=== PATIENT | female | born 1960 | race Caucasian/White ===

== ENCOUNTER 2019-03-03 06:54 | Day surgery (SDC) | payer BC ==
[~2019-03-03 06:54] MED LIST: Lactated Ringers 1,000 ML IV SCH
[2019-03-03] MEDS ORDERED: Lidocaine 2% 100 MG/5 ML Syringe IVPUSH ONE (06:55)
[2019-03-03] MEDS ORDERED: Propofol 200 MG/20 ML SDV IV ONE (06:55)
[2019-03-03] MEDS ORDERED: Midazolam 1 MG/ML 2 ML SDV IVPUSH ONE (06:55)
[2019-03-03] MEDS ORDERED: Simethicone Drops 40 MG/0.6 ML 30 ML Bottle ONE (08:41)
--- NOTE | 2019-03-03 08:54 | PCM.HP ---
H&P History of Present Illness - General Date of Service: 03/03/19 Admit Problem/Dx: Admission Diagnosis/Problem Admission Diagnosis/Problem Esophagogastroduodenoscopy Source of Information: Patient History Limitations: Reports: No Limitations - History of Present Illness Initial Comments - Free Text/Narative: Here for EGD and colonoscopy for evaluation of GERD, abd pain and Change in bowel habits - Related Data Allergies/Adverse Reactions: Allergies Allergy/AdvReac Type Severity Reaction Status Date / Time amlodipine besylate Allergy Cannot Verified 02/14/19 09:01 [From Lotrel] Remember benazepril HCl [From Lotrel] Allergy Cannot Verified 02/14/19 09:01 Remember diphenhydramine HCl Allergy Tachycardia Verified 02/14/19 09:01 [From Benadryl] hydrochlorothiazide Allergy Other Verified 03/02/19 10:55 Penicillins Allergy Rash Verified 02/14/19 09:01 Home Medications: Home Meds Acetaminophen 650 mg PO Q4H PRN 11/04/13 [History] Aspirin [Adult Low Dose Aspirin EC] 81 mg PO DAILY 11/04/13 [History] Cyclobenzaprine [Flexeril] 10 mg PO BEDTIME 11/04/13 [History] Hydrochlorothiazide 50 mg PO DAILY 11/04/13 [History] Hydrocodone/Acetaminophen [Hydrocodon-Acetaminophn 10-325] 1 each PO Q6HR [History] Metoprolol Tartrate 100 mg PO BID 11/04/13 [History] Olmesartan [Benicar] 40 mg PO DAILY 11/04/13 [History] sitaGLIPtin Phos/Metformin HCl [Janumet Xr 50-1,000 mg Tablet] 1 tab PO DAILY [History] Fgrcw-J-Pwzqicdmphdor [Beano] 1 tab PO ASDIRECTED 03/02/19 [History] Calcium Carbonate/Vitamin D3 [Sv Calcium 600-Vit D3 500 Sfgl] 1 cap PO BID 03/02 [History] Liraglutide [Victoza] 1.8 mg SQ DAILY 03/02/19 [History] Min[place]-3/DHA/Epa/Fish Oil [Minot-3 Fish Oil 1,000 MG Sfgl] 1 cap PO BID 03/02/19 [History] Omeprazole Magnesium [Prilosec Otc] 1 cap PO DAILY 03/02/19 [History] Pregabalin [Lyrica] 1 cap PO TID 03/02/19 [History] Simvastatin 1 tab PO DAILY 03/02/19 [History] amLODIPine [Norvasc] 1 tab PO DAILY 03/02/19 [History] Past Medical History HEENT History: Reports: Impaired Vision Cardiovascular History: Reports: High Cholesterol, Hypertension Respiratory History: Reports: None Gastrointestinal History: Reports: GERD Genitourinary History: Reports: Urinary Incontinence 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 OB/BYN History: II PARA II Musculoskeletal History: Reports: Back Pain, Chronic, Other (See Below) Other Musculoskeletal History: DDD, FACET ARTHROPATHY, MYOFASCIAL PAIN DYSFUNCTION SYNDROME, SI JOINT DYSFUNCTION Neurological History: Reports: None Psychiatric History: Reports: None Endocrine/Metabolic History: Reports: Diabetes, Type II Hematologic History: Reports: None Immunologic History: Reports: None Oncologic (Cancer) History: Reports: None Dermatologic History: Reports: None - Infectious Disease History Infectious Disease History: Reports: Chicken Pox - Past Surgical History Head Surgeries/Procedures: Reports: None GI Surgical History: Reports: Appendectomy, Cholecystectomy, Colonoscopy, EGD Female Surgical History: Reports: Hysterectomy Social & Family History - Family History Other GI Family History: FATHER WITH CROHN'S DISEASE - Tobacco Use Smoking Status *Q: Current Every Day Smoker Years of Tobacco use: 35 - Caffeine Use Caffeine Use: Reports: Coffee, Soda, Tea - Recreational Drug Use Recreational Drug Use: No Drug Use in Last 12 Months: No H&P Review of Systems - Review of Systems: Review Of Systems: ROS reveals no pertinent complaints other than HPI. Exam - Exam Exam: See Below - Vital Signs Vital Signs: Last Vital Signs Temp 97.8 F 03/03/19 07:35 Pulse 54 L 03/03/19 07:35 Resp 20 03/03/19 07:35 BP 175/78 H 03/03/19 07:35 Pulse Ox 100 03/03/19 07:35 Weight: 78.925 kg - Exam General: Alert, Oriented Lungs: Clear to Auscultation, Normal Respiratory Effort Cardiovascular: Regular Rate, Regular Rhythm GI/Abdominal Exam: Soft, Non-Tender - Patient Data Lab Results Last 24 hrs: Laboratory Results - last 24 hr 03/03/19 Range/Units 07:33 POC Glucose 199 H (80-116) mg/dL Problem List Initiated/Reviewed/Updated: Yes Orders Last 24hrs: Active Orders 24 hr Category Date Time Status Patient Status [ADT] Routine ADT 03/03/19 06:45 Ordered Blood Glucose Check, Bedside [RC] ONETIME Care 03/03/19 06:45 Active Patient to Empty Bladder [RC] ASDIRECTED Care 03/03/19 06:45 Active Verify Patient Consent Obtain [RC] ASDIRECTED Care 03/03/19 06:45 Active Nothing Per Oral Diet [DIET] Diet 03/02/19 Dinner Ordered Lactated Ringers [Ringers, Lactated] 1,000 ml Med 03/03/19 06:45 Active IV ASDIRECTED Peripheral IV Insertion Adult [OM.PC] Routine Oth 03/03/19 06:45 Ordered Resuscitation Status Routine Resus Stat 03/02/19 11:09 Ordered Medication Orders Lactated Ringer's (Ringers, Lactated) 1,000 mls @ 125 mls/hr IV ASDIRECTED [facility] Last Admin: 03/03/19 07:28 Dose: 125 mls/hr Assessment/Plan Comment:: A) GERD, abd pain and change in bowel habits P) Ok toproceed with EGD and Colonsocopy
--- NOTE | 2019-03-03 08:56 | PCM.OPNOTE ---
- General Post-Op/Procedure Note Date of Surgery/Procedure: 03/03/19 Operative Procedure(s): EGD with Bx and colonoscopy Findings: Pyloric Channel Ulcer Normal Colonoscopy Pre Op Diagnosis: Above Post-Op Diagnosis: Same Anesthesia Technique: MAC Primary Surgeon: Vel Pelayo Complications: None Condition: Good
--- NOTE | 2019-03-03 10:07 | OR ---
DATE OF OPERATION: 03/03/2019 SURGEON: Vel Pelayo MD PREOPERATIVE DIAGNOSES: 1. Gastroesophageal reflux disease. 2. Epigastric abdominal pain. 3. Change in bowel habits. POSTOPERATIVE DIAGNOSES: 1. Pyloric channel ulcer. 2. Normal colonoscopy. PROCEDURES: 1. Esophagogastroduodenoscopy with biopsy. 2. Colonoscopy. ANESTHESIA: IV sedation. PROCEDURE IN DETAIL: The patient was brought to the procedure room, where she was placed on the left side and IV sedation administered. Oral bite block was placed and the upper endoscope advanced into the esophagus under direct vision without difficulty. Vocal cords were viewed and were normal. Scope was advanced to the third portion of the duodenum. Duodenum appears normal. There is a 5 mm healing ulcer in the pyloric channel without evidence of bleeding. The antrum does have some inflammation. Body and fundus appeared normal. Retroflexion is normal other than lower esophageal sphincter that is loose and I can visualize into the distal esophagus upon retroflexion. I did take biopsies from the antrum and body of the stomach. Scope was withdrawn into the distal esophagus. Squamocolumnar junction appears normal. I did take biopsies from the distal esophagus because of her symptoms. Air was removed from the stomach and the scope withdrawn. The remaining esophagus appeared normal. The patient tolerated this portion of the procedure well. Next, colonoscopy was performed, after digital rectal exam, which was done, which was normal. Colonoscope was inserted and advanced to the level of the cecum with some difficulty getting through a tortuous sigmoid colon. Cecum was confirmed by identifying the appendiceal lumen and ileocecal valve. Prep was good and surfaces were well visualized. Upon withdrawing the scope, the ascending, transverse, and descending colon were normal in appearance. The sigmoid colon and rectum were normal. Retroflexion was normal. Air was removed and the scope withdrawn. The patient tolerated the procedure well and returned to recovery in stable condition. I will have the patient follow up with me next week for review of biopsies. I will have her restart her proton pump inhibitor. Recommend colon screening again in 10 years. /[id number] HARPER/PRISCILLA
== END 2019-03-03 09:44 | disposition home or self-care (01) ==
LOC: FB.SDS 06:54
PROVIDERS: ATTEND Surgery
DX: K21.0 Gastro-esophageal reflux disease with esophagitis (principal); K25.9 Gastric ulcer, unspecified as acute or chronic, without hemorrhage or perforation; R19.4 Change in bowel habit; I10 Essential (primary) hypertension; E11.9 Type 2 diabetes mellitus without complications; E78.00 Pure hypercholesterolemia, unspecified; F17.210 Nicotine dependence, cigarettes, uncomplicated; Z88.0 Allergy status to penicillin; Z88.8 Allergy status to other drugs, medicaments and biological substances; Z79.82 Long term (current) use of aspirin; Z79.84 Long term (current) use of oral hypoglycemic drugs; Z79.899 Other long term (current) drug therapy; Z98.890 Other specified postprocedural states
CPT/HCPCS: 43239; 45378; 82962; 88305; 88313; 88342; A9270; J2001; J2250; J2704; J7120

== ENCOUNTER 2021-12-03 09:52 | Day surgery (SDC) | payer BC ==
[~2021-12-03 09:52] MED LIST changes: +Lactated Ringers 1,000 ML IV PRN; -Lactated Ringers 1,000 ML IV SCH; +Sodium Chloride 0.9% 10 ML Syringe FLUSH PRN
[2021-12-03] MEDS ORDERED: fentaNYL 100 MCG/2 ML SDV IV ONE (09:53)
[2021-12-03] MEDS ORDERED: Midazolam 1 MG/ML 2 ML SDV IV ONE (09:53)
[2021-12-03] MEDS ORDERED: Tetracaine HCl/PF 0.5% 4 ML Bottle ONE (10:44)
[2021-12-03] MEDS ORDERED: Dexamethasone/Tobramycin 0.1-0.3% Ophth Susp 2.5 ML Bottle ONE (11:01)
[2021-12-03] MEDS ORDERED: Brimonidine 0.2% Ophth Soln 5 ML Bottle ONE (11:01)
[2021-12-03] MEDS ORDERED: acetaZOLAMIDE 500 MG Cap.ER PO ONE (11:30)
== END 2021-12-03 11:39 | disposition home or self-care (01) ==
LOC: FB.SDS 09:52
PROVIDERS: ATTEND Ophthalmology
DX: E11.36 Type 2 diabetes mellitus with diabetic cataract (principal); E11.3293 Type 2 diabetes mellitus with mild nonproliferative diabetic retinopathy without macular edema, bilateral; H25.13 Age-related nuclear cataract, bilateral; H40.013 Open angle with borderline findings, low risk, bilateral; H52.13 Myopia, bilateral; H21.81 Floppy iris syndrome; K21.9 Gastro-esophageal reflux disease without esophagitis; I10 Essential (primary) hypertension; E78.00 Pure hypercholesterolemia, unspecified; G47.33 Obstructive sleep apnea (adult) (pediatric); Z90.49 Acquired absence of other specified parts of digestive tract; Z98.890 Other specified postprocedural states; Z90.711 Acquired absence of uterus with remaining cervical stump; Z88.0 Allergy status to penicillin; Z88.8 Allergy status to other drugs, medicaments and biological substances; F17.210 Nicotine dependence, cigarettes, uncomplicated; Z79.82 Long term (current) use of aspirin; Z79.84 Long term (current) use of oral hypoglycemic drugs; Z79.899 Other long term (current) drug therapy
CPT/HCPCS: 00142-QZ; 00732-QZ; 82947; A9270-GY; J2250; J3010; V2632

== ENCOUNTER 2022-08-21 13:11 | Observation (INO) | payer BC ==
[2022-08-21] MEDS ORDERED: Albuterol/Ipratropium 3.0-0.5 MG/3 ML Neb Soln ONE (13:43)
[2022-08-21] MEDS ORDERED: Albuterol/Ipratropium 3.0-0.5 MG/3 ML Neb Soln NEB ONE (13:43)
[2022-08-21 14:21] LABS: ESTIMATED GFR 42 mL/min (>60)
[2022-08-21 15:16] LABS: CORONAVIRUS COVID-19 NAA NEGATIVE (NEGATIVE)
[2022-08-21] MEDS ORDERED: Magnesium Hydroxide 400 MG/5 ML Susp 30 ML Cup PO PRN (15:35)
[2022-08-21] MEDS ORDERED: Zolpidem 5 MG Tab PO PRN (15:35)
[2022-08-21] MEDS ORDERED: Ondansetron 4 MG/2 ML SDV IV PRN (15:35)
[2022-08-21] MEDS ORDERED: Albuterol 0.083% 2.5 MG/3 ML Neb Soln NEB PRN (15:37)
[2022-08-21] MEDS ORDERED: Sodium Chloride 0.9% 1,000 ML IV ONE (15:41)
[2022-08-21] MEDS ORDERED: Enoxaparin 40 MG/0.4 ML Syringe SUBCUT SCH (15:45)
[2022-08-21] MEDS ORDERED: Acetaminophen 325 MG Tab PO SCH (15:45)
[2022-08-21] MEDS ORDERED: Non-Formulary Medication 1 Each (Semaglutide [Ozempic] 1 MG/0.75 ML Pen.Injctr) SQ SCH (15:45)
[2022-08-21] MEDS ORDERED: Non-Formulary Medication 1 Each (Insulin Degludec [Tresiba Flextouch U-100] 100 UNIT/ML Pe SUBCUT SCH (16:00)
[2022-08-21] MEDS ORDERED: Glucagon,Human Recombinant 1 MG Vial IM PRN (16:14)
[2022-08-21] MEDS ORDERED: 50% Dextrose in Water 50 ML Syringe IVPUSH PRN (16:14)
[2022-08-21] MEDS ORDERED: Sodium Chloride 0.45% with KCl 1,000 ML IV SCH (16:30)
[2022-08-21] MEDS: Sodium Chloride 0.9% 1,000 ML IV SCH (16:47)
[2022-08-21] MEDS: Albuterol/Ipratropium 3.0-0.5 MG/3 ML Neb Soln INH SCH ×2 (16:48→21:30)
[2022-08-21] MEDS: Oseltamivir 75 MG Cap PO SCH ×2 (16:49→20:10)
[2022-08-21] MEDS: Acetaminophen 500 MG Tab PO SCH ×2 (16:49→21:30)
[2022-08-21] MEDS: Insulin Lispro 100 Unit/ML 3 ML KwikPen SUBCUT SCH ×2 (16:51→20:19)
[2022-08-21] MEDS: metFORMIN 500 MG Tab.ER PO SCH (17:46)
[2022-08-21] MEDS: Pregabalin 75 MG Cap PO SCH (20:23)
[2022-08-21] MEDS ORDERED: Cyclobenzaprine 10 MG Tab *PTOM PO SCH (21:00)
[2022-08-22] MEDS: Ciprofloxacin 500 MG Tab PO SCH ×2 (00:50→08:58)
[2022-08-22] MEDS: Sodium Chloride 0.9% 1,000 ML IV SCH (00:58)
[2022-08-22] MEDS: Acetaminophen 500 MG Tab PO SCH (03:46)
[2022-08-22] MEDS: Albuterol/Ipratropium 3.0-0.5 MG/3 ML Neb Soln INH SCH ×2 (03:46→11:52)
[2022-08-22 06:57] LABS: ESTIMATED GFR 83 mL/min (>60)
[2022-08-22] MEDS ORDERED: Pantoprazole 40 MG Tab.CR PO SCH (07:30)
[2022-08-22] MEDS: metFORMIN 500 MG Tab.ER PO SCH (07:44)
[2022-08-22] MEDS ORDERED: Potassium Chloride 20 MEQ Tab.ER PO ONE (08:23)
[2022-08-22] MEDS ORDERED: Acetaminophen/HYDROcodone 325-10 MG Tab PO PRN (08:54)
[2022-08-22] MEDS: Insulin Lispro 100 Unit/ML 3 ML KwikPen SUBCUT SCH (08:58)
[2022-08-22] MEDS ORDERED: Simvastatin 20 MG Tab PO SCH (09:00)
[2022-08-22] MEDS ORDERED: OLMESARTAN 40 MG PO SCH (09:00)
[2022-08-22] MEDS ORDERED: Metoprolol Succinate 100 MG Tab.ER PO SCH (09:00)
[2022-08-22] MEDS ORDERED: Insulin Glargine,Human Rec. Analog 100 Units/ML 3 ML Pen SUBCUT SCH (09:00)
[2022-08-22] MEDS ORDERED: Aspirin 81 MG Tab.EC PO SCH (09:00)
[2022-08-22] MEDS: Oseltamivir 75 MG Cap PO SCH (09:27)
[2022-08-22] MEDS: Pregabalin 75 MG Cap PO SCH (09:32)
== END 2022-08-22 12:05 | disposition home or self-care (01) ==
LOC: FB.ED 13:11 → FB.MS 15:51
PROVIDERS: ADMIT Emergency Medicine; ATTEND Student in an Organized Health Care Education/Training Program
DX: J10.1 Influenza due to other identified influenza virus with other respiratory manifestations (principal); J96.01 Acute respiratory failure with hypoxia; I95.89 Other hypotension; E78.00 Pure hypercholesterolemia, unspecified; I12.9 Hypertensive chronic kidney disease with stage 1 through stage 4 chronic kidney disease, or unspecified chronic kidney disease; N18.2 Chronic kidney disease, stage 2 (mild); E11.22 Type 2 diabetes mellitus with diabetic chronic kidney disease; E66.9 Obesity, unspecified; N28.9 Disorder of kidney and ureter, unspecified; E86.0 Dehydration; R94.31 Abnormal electrocardiogram [ECG] [EKG]; E11.69 Type 2 diabetes mellitus with other specified complication; Z68.29 Body mass index [BMI] 29.0-29.9, adult; Z88.8 Allergy status to other drugs, medicaments and biological substances; Z88.5 Allergy status to narcotic agent; Z88.0 Allergy status to penicillin; Z79.82 Long term (current) use of aspirin; Z79.899 Other long term (current) drug therapy; Z98.890 Other specified postprocedural states; Z90.49 Acquired absence of other specified parts of digestive tract; Z20.822 Contact with and (suspected) exposure to COVID-19; Z79.4 Long term (current) use of insulin; N39.0 Urinary tract infection, site not specified
CPT/HCPCS: 0241U; 36415; 71045; 80048; 80053; 81001; 82947; 83605; 83735; 84484; 85025; 86140; 87086; 87088; 87186; 93005; 94640; 99285; A9270; J1650; J1815; J7030; 96361; 96372; G0378; J7620